=== PATIENT | male | born 1930 | race Caucasian/White ===

== ENCOUNTER 2016-08-07 23:32 | Inpatient (IN) | payer OTHER ==
--- NOTE | ~2016-08-07 | DS ---
Discharge Summary [facility] [address] [place]. [address] NAME: NEVA CONTRERAS : 29 STATUS : ADM IN [facility]#: [id number] AGE: 86 ADM/REG DATE : 08/08/16 MR#: [id number] REPORT SERV DATE: 08/11/16 DICTATED BY: NEVA AGUILAR MYKE DATE: 08/10/16 REPORT STATUS : Draft TRANSCRIBED BY: MODL DATE: 08/10/16 ADMISSION DATE: 08/08/2016 DISCHARGE DATE: The patient is an 86-year-old male with a history of diabetes, hypertension, and COPD, who presented to the emergency room with a complaint of weight loss and elevated blood sugar. For further details, please refer to H and P dictated by Dr. Moe Mhaan on 08/08/2016. HOSPITAL COURSE: Upon presentation to the hospital, the patient was diagnosed with hyperosmolar hyperglycemic nonketotic state. The patient was subsequently placed on insulin drip and admitted on the Hospitalist Service for further management. The patient's blood sugar was subsequently controlled. He was transitioned to subcutaneous insulin with adequate control of his blood sugar, however, overnight, episodes of hypoglycemia was noted. Also during his hospital course, the patient converted from sinus rhythm to atrial fibrillation. His CHADS2 score was 4 indicating anticoagulation; however, the patient remained rhythm controlled. The patient was started on Lovenox; however, the patient will be transitioned to Eliquis upon discharge. His HAS-BLED score is 2 suggesting that the risk of developing a stroke is greater than the risk of bleeding. Given this, the patient will be placed on long-term anticoagulation. The plan has been discussed with the patient, who voices understanding. For his diabetes, his A1c was checked and was 13.4; however, etiology of his elevated blood sugar is secondary to medication nonadherence as the patient was placed on metformin by primary care physician without compliance. Given that placing the patient on insulin precipitated several episodes of hypoglycemia, we will hold off on discharging the patient on insulin regimen. We will continue the patient on metformin recommended by his primary care physician and stress the importance of medication adherence. For his hypertension, blood pressure was uncontrolled. Hydrochlorothiazide was added to lisinopril with subsequent control of his blood pressure. The patient has remained hemodynamically stable. Given the completion of management, the patient will be discharged home today. Plan has been discussed with the patient, who voices understanding and is agreeable with this plan. DISCHARGE EXAM: VITAL SIGNS: Blood pressure 117/57 with a pulse of 69, respirations 20, O2 saturation 94% on 2 L nasal cannula. GENERAL: The patient is lying in bed, in no acute distress, appears stated age. HEENT: Normocephalic and atraumatic. Extraocular motors intact. Moist oral mucosa. NECK: Trachea midline and symmetric. No JVD noted. No thyromegaly present. CHEST: Nontender to palpation. CARDIOVASCULAR: Irregularly irregular rate and rhythm. No murmurs noted. LUNGS: Clear to auscultation bilaterally. No added breath sounds. ABDOMEN: Positive bowel sounds. Nontender. Nondistended. EXTREMITIES: No cyanosis, no clubbing, no edema. NEUROLOGIC: Alert and oriented x3. No focal deficits appreciated. DISCHARGE MEDICATIONS: The patient's home medications were continued including atorvastatin 10 mg p.o. daily, doxazosin 4 mg p.o. at bedtime, Lisinopril 10 mg p.o. daily, prednisone 10 mg p.o. daily, metformin 500 mg p.o. daily, Eliquis 5 mg p.o. twice a day, Discharge Summary [address] [address] NAME: NEVA CONTRERAS : 28 STATUS : ADM IN [facility]#: [id number] AGE: 86 ADM/REG DATE : 08/08/16 MR#: [id number] REPORT SERV DATE: 08/11/16 DICTATED BY: NEVA AGUILAR DATE: 08/10/16 REPORT STATUS : Draft TRANSCRIBED BY: DANIEL DATE: 08/10/16 hydrochlorothiazide 25 mg p.o. daily. DISCHARGE DIAGNOSES: 1. Diabetes type 2, uncontrolled. 2. Hypertension. 3. Hypokalemia. 4. Chronic obstructive pulmonary disease. 5. Obstructive sleep apnea. 6. Paroxysmal atrial fibrillation. DISPOSITION: The patient will be discharged home to follow up with primary care physician in five to seven days. ACTIVITY: As tolerated. DIET: Diabetic diet. Greater than 30 minutes was spent coordinating discharge, dictation of note, medication reconciliation, writing prescription. DICTATED BY: MD JULIA Rizzo/DANIEL Neva Aguilar MD / [id number] CC: MD Storm Rizzo M.D.
--- NOTE | ~2016-08-07 | HP ---
History And Physical [facility] [address] [place]. [address] NAME: NEVA CONTRERAS : 28 STATUS : ADM IN [facility]#: [id number] AGE: 86 ADM/REG DATE : 08/08/16 MR#: [id number] REPORT SERV DATE: 08/08/16 DICTATED BY: LOLY DUCKWORTH DATE: 08/08/16 REPORT STATUS : Draft TRANSCRIBED BY: MODL DATE: 08/08/16 DATE OF ADMISSION: 08/08/2016 CHIEF COMPLAINT: An 86-year-old male presenting with weight loss, debilitation, and a measured blood sugar over 600. HISTORY OF PRESENTING ILLNESS: The patient's history was obtained through careful interview with the patient, , and stepdaughter, coupled with review of [facility] medical records. For about three weeks now, the patient has had quite severe debilitation, decreased energy. He has lost about 20 pounds over that period of time. For several weeks now, he has had increasing shortness of breath. He actually went for a CT scan of his chest on 07/29/2016 that showed usual interstitial pneumonia with bronchiectasis, pulmonary fibrosis. He has been on prednisone since 05/2016 to help his breathing and he admits that his chronic dyspnea on exertion has improved recently. The patient has had unsteady gait, been ambulating with a cane. He has had near falls. Occasional lightheadedness. He has had polyuria, polydipsia. He has had three falls in the last two and a half weeks. No chest pain. No abdominal pain. No back pain. No headache. He has had some arthritis discomfort in his shoulders and wrists, an aching quality, 3/10 severity without swelling of the joints though. REVIEW OF SYSTEMS: Otherwise, a 14-point review of systems was obtained and was negative. PAST MEDICAL HISTORY: 1. COPD. 2. Pulmonary fibrosis. 3. Obstructive sleep apnea, on CPAP. 4. Elevated cholesterol. 5. Hypertension. 6. Benign prostatic hypertrophy. 7. Diabetes. The patient quit using metformin a few months ago. A blood sugar checked on the night of admission was greater than 600. 8. Anemia. 9. Usual interstitial pneumonitis with bronchiectasis by CT scan, 07/29/2016. 10.Thoracic aortic aneurysm, 4.2 cm. 11.Dementia. PAST SURGICAL HISTORY: Basal cell carcinoma removed from the skin. SOCIAL HISTORY: The patient quit smoking more than 40 years ago. No alcohol abuse. Is History And Physical [address] [address] NAME: NEVA CONTRERAS : 28 STATUS : ADM IN PAT#: [id number] AGE: 86 ADM/REG DATE : 08/08/16 MR#: [id number] REPORT SERV DATE: 08/08/16 DICTATED BY: LOLY DUCKWORTH DATE: 08/08/16 REPORT STATUS : Draft TRANSCRIBED BY: DANIEL DATE: 08/08/16 . Lives in [place], [place]. Has three children. 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 ALLERGIES: NO KNOWN DRUG ALLERGIES. FAMILY HISTORY: Diabetes. CURRENT MEDICATIONS: Include Lipitor 20 mg p.o. daily, Tums, Cardura 4 mg p.o. q.h.s., Advil p.r.n., lisinopril 10 mg p.o. daily, metformin 500 mg p.o. b.i.d. has not taken his medication in months, prednisone 10 mg p.o. daily, and iron supplement. PHYSICAL EXAMINATION: VITAL SIGNS: Temperature 97.5, pulse 65, blood pressure 124/59, respiratory rate 19, O2 saturation 94% on room air. GENERAL: A chronically ill-appearing male, but in no evidence of acute distress. HEENT: Pupils equal, round, and reactive to light. No conjunctival pallor. No scleral icterus. Nares are patent. Oropharynx is clear of obstruction. Dry mucous membranes. The patient has oral thrush. NECK: Trachea midline. No thyromegaly. LYMPH: No cervical lymphadenopathy. No supraclavicular lymphadenopathy. RESPIRATORY: Clear to auscultation at bases with some crackles at the base of lungs, but no rales, no wheezes. The patient has a nonlabored respiratory effort. CARDIOVASCULAR: Regular rate and rhythm. No murmurs, rubs, or gallops. No extremity edema is appreciated. ABDOMEN: Soft, nontender, nondistended. Normal bowel sounds auscultated throughout. No hepatosplenomegaly. DERMATOLOGICAL: Warm and dry extremities. No pallor, no cyanosis. PSYCHIATRIC: Flat affect. Irritable mood. Alert and oriented x3. LABORATORY DATA: White blood cell count 11.7, hemoglobin 13, hematocrit 38, platelets 301. Sodium 134, potassium 3.9, chloride 99, bicarb 28, BUN 17, creatinine 1.33, glucose 556. Urinalysis, negative for infection. Lipase 321. ASSESSMENT AND PLAN: 1. Hyperosmolar nonketotic hyperglycemia. Place on insulin drip IV. IV fluids. Check hemoglobin A1c. 2. Usual interstitial pneumonia with fibrosis. 3. Bronchiectasis. 4. Obstructive sleep apnea, on CPAP. 5. Chronic obstructive pulmonary disease. 6. Thrush. Start nystatin swish and swallow. KPL/MODL Loly Dominguez History And Physical [address] [address] NAME: NEVA CONTRERAS : 28 STATUS : ADM IN [facility]#: [id number] AGE: 86 ADM/REG DATE : 08/08/16 MR#: [id number] REPORT SERV DATE: 08/08/16 DICTATED BY: LOLY DUCKWORTH DATE: 08/08/16 REPORT STATUS : Draft TRANSCRIBED BY: DANIEL DATE: 08/08/16 Henrique Duckworth / [id number] CC: MD Storm Rizzo M.D.
--- NOTE | ~2016-08-07 | DS ---
Discharge Summary [facility] [address] [place]. [address] NAME: NEVA CONTRERAS : 28 STATUS : DIS IN PAT#: [id number] AGE: 86 ADM/REG DATE : 08/08/16 MR#: [id number] REPORT SERV DATE: 08/12/16 DICTATED BY: KENNEDY ACKERMAN DATE: 08/11/16 REPORT STATUS : Draft TRANSCRIBED BY: MODL DATE: 08/11/16 ADMISSION DATE: 08/08/2016 DISCHARGE DATE: 08/11/2016 ADDENDUM: Addendum to Dr. Gutierrez's discharge summary done just yesterday. In summary, this is a pleasant 86-year-old male. He has a known history of insulin-dependent diabetes, very uncontrolled A1c, near 13.7; hypertension; COPD, came in with weight loss; hyperglycemia; determined to have hyperosmolar hyperglycemic nonketotic state, placed on IV insulin drip, became more euglycemic, transitioned subcutaneously. Overnight episodes of hypoglycemia likely due to better compliance with his insulin regimen and dietary control. He did have apparent AFib that was converted to sinus rhythm. CHADS2 of 4 requiring anticoagulation, transitioned from Lovenox to Eliquis. The patient understands needs to be compliant from a dietary perspective and medication compliance with subcutaneous insulin. 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 Creatinine is permissive. He wants to go home. I will provide a rolling walker if the patient would like, we will discharge home. Follow up with PCP in two weeks. Follow up with outpatient diabetic education. Follow up with Endocrinology as an outpatient in four weeks for [facility]. Follow up with Cardiology in four weeks as well. For which the patient rather than being on hydrochlorothiazide for which was discharged in the past, should be placed on likely rate controlling medication in addition to his ULICES inhibitor. DISCHARGE MEDICATIONS: Eliquis 5 p.o. b.i.d., Lipitor 20 p.o. daily, Cardura 4 p.o. q.h.s., iron sulfate 300 p.o. daily, hydrochlorothiazide 25 p.o. daily. We would recommend to supplant that with low-dose metoprolol; NovoLog 5 units subcutaneously t.i.d. before meals; NovoLog sliding scale level 1; lisinopril 10 p.o. daily; nystatin swish and swallow q.6h. seven more days; metformin 500 p.o. b.i.d.; prednisone 10 p.o. daily, takes this for "arthritis" we will be concerned about possible rheumatologic disease, defer to his PCP; DuoNeb p.r.n.; Levemir 10 subcutaneously q.a.m. and 6 subcutaneously q.h.s. and educated on nighttime small snack before bedtime. Consults apparently were none. See rest of details from Dr. Gutierrez's discharge summary. It took over 30 minutes to do. DICTATED BY: Kennedy Ackerman DO WST/DANIEL Discharge Summary [address] [address] NAME: NEVA CONTRERAS : 28 STATUS : DIS IN PAT#: [id number] AGE: 86 ADM/REG DATE : 08/08/16 MR#: [id number] REPORT SERV DATE: 08/12/16 DICTATED BY: KENNEDY ACKERMAN DATE: 08/11/16 REPORT STATUS : Draft TRANSCRIBED BY: MODL DATE: 08/11/16 Kennedy Ackerman DO / [id number] CC: DO Storm Ruelas M.D.
[2016-08-07 19:45] LABS: BASOPHILS 0.2 %; BASOPHILS ABSOLUTE 0.02 10/3/uL (0.0-0.16); EOSINOPHILS 0.8 %; EOSINOPHILS ABSOLUTE 0.09 10/3/uL (0.0-0.53); ER CBC TAT 0 Hrs 15 Mins; HEMATOCRIT 37.6 % (40.0-51.0); HEMOGLOBIN 12.8 g/dL (13.6-17.8); IMMATURE GRANULOCYTES 0.3 %; IMMATURE GRANULOCYTES ABSOLUTE 0.04 10/3/uL (0.0-0.11); LYMPHOCYTES 14.7 %; LYMPHOCYTES ABSOLUTE 1.72 10/3/uL (0.67-4.30); MEAN CORPUSCULAR HEMOGLOB 31.2 pg (26.0-34.0); MEAN CORPUSCULAR VOLUME 91.7 fL (80-100); MEAN PLATELET VOLUME 9.2 fL (9.2-13.0); MONOCYTES 4.8 %; MONOCYTES ABSOLUTE 0.56 10/3/uL (0.21-1.20); NEUTROPHILS 79.2 %; NEUTROPHILS ABSOLUTE 9.25 10/3/uL (2.02-8.40); PLATELET COUNT 301 10/3/uL (150-400); RBC DISTRIBUTION WIDTH 12.9 % (12.0-16.0); WHITE BLOOD CELLS 11.7 10/3/uL (4.5-10.5)
[2016-08-07 19:46] LABS: MANUAL DIFF NO %
[2016-08-07 19:49] LABS: ASCORBIC ACID (UR NOT ORDER) NEG (NEG); BILIRUBIN, URINE NEGATIVE (NEG); ER URINALYSIS TAT 0 Hrs 11 Mins; KETONE, URINE TRACE MG/DL (NEG); LEUKOCYTE ESTERASE(NOT OR NEG (NEG); NITRITE (URINE) NEG (NEG); WBC (NOT ORDERED) (RFLEX) 1 (0-5)
[2016-08-07 20:02] LABS: A/G RATIO 0.8 (0.7-1.9); ALBUMIN 3.1 G/DL (3.5-5.0); CALCIUM, SERUM 8.8 MG/DL (8.5-10.4); CHLORIDE, SERUM 99 MMOL/L (96-112); CREATININE 1.33 MG/DL (0.70-1.30); GFR AFRICAN AMERICAN 55 ML/MIN (>=60); GFR NON AFRICAN AMERICAN 48 ML/MIN (>=60); GLOBULIN 3.9 G/DL (2.5-4.1); SGOT(AST) 18 U/L (5-40); SGPT(ALT) 26 U/L (5-65)
[2016-08-07 20:03] LABS: ALKALINE PHOSPHATASE 83 U/L (45-117); BUN (BLOOD UREA NITROGEN) 17 MG/DL (6-23); CO2 (CARBON DIOXIDE) 28 MMOL/L (24-34); GLUCOSE, SERUM 556 MG/DL (60-99); POTASSIUM, SERUM 3.9 MMOL/L (3.5-5.3); SODIUM, SERUM 134 MMOL/L (135-148); TOTAL BILIRUBIN 0.9 MG/DL (0-1.2)
[~2016-08-07 23:32] MED LIST: ACET500CAP PO; ALEVE220 MG PO; CARDU4 PO; GLUCCHONDR PO; IRON PO; LOPID6 PO; PRILO PO; PRIN10 PO; TUMSROLL PO
[2016-08-08] MEDS ORDERED: PRIN10 PO (00:06)
[2016-08-08] MEDS ORDERED: P10 PO (00:06)
[2016-08-08] MEDS ORDERED: CARDU4 PO (00:07)
[2016-08-08] MEDS ORDERED: LIPITOR20 PO (00:07)
[2016-08-08] MEDS ORDERED: GLUMETZA500 MG PO (00:09)
[2016-08-08] MEDS ORDERED: ADVIL PO (00:10)
[2016-08-08] MEDS ORDERED: TUMSROLL PO (00:10)
[2016-08-08] MEDS ORDERED: IRON OTC PO (00:10)
[2016-08-08 07:46] LABS: BASOPHILS 0.2 %; BASOPHILS ABSOLUTE 0.02 10/3/uL (0.0-0.16); EOSINOPHILS 1.6 %; EOSINOPHILS ABSOLUTE 0.16 10/3/uL (0.0-0.53); HEMOGLOBIN 10.6 g/dL (13.6-17.8); IMMATURE GRANULOCYTES 0.3 %; IMMATURE GRANULOCYTES ABSOLUTE 0.03 10/3/uL (0.0-0.11); LYMPHOCYTES 19.1 %; LYMPHOCYTES ABSOLUTE 1.89 10/3/uL (0.67-4.30); MEAN CORPUS HGB CONC 34.2 g/dL (32.0-36.0); MEAN CORPUSCULAR HEMOGLOB 30.6 pg (26.0-34.0); MEAN CORPUSCULAR VOLUME 89.6 fL (80-100); MEAN PLATELET VOLUME 9.4 fL (9.2-13.0); MONOCYTES 6.7 %; MONOCYTES ABSOLUTE 0.66 10/3/uL (0.21-1.20); NEUTROPHILS 72.1 %; NEUTROPHILS ABSOLUTE 7.11 10/3/uL (2.02-8.40); PLATELET COUNT 272 10/3/uL (150-400); RBC DISTRIBUTION WIDTH 12.9 % (12.0-16.0); RED CELL COUNT 3.46 10/6/uL (4.7-6.1); WHITE BLOOD CELLS 9.9 10/3/uL (4.5-10.5)
[2016-08-08 07:49] LABS: MANUAL DIFF NO %
[2016-08-08 07:58] LABS: BUN (BLOOD UREA NITROGEN) 17 MG/DL (6-23); CALCIUM, SERUM 8.2 MG/DL (8.5-10.4); CHLORIDE, SERUM 106 MMOL/L (96-112); CO2 (CARBON DIOXIDE) 29 MMOL/L (24-34); CREATININE 0.91 MG/DL (0.70-1.30); GFR AFRICAN AMERICAN 88 ML/MIN (>=60); GFR NON AFRICAN AMERICAN 76 ML/MIN (>=60); PHOSPHORUS, SERUM 2.2 MG/DL (2.5-4.5); POTASSIUM, SERUM 3.2 MMOL/L (3.5-5.3)
[2016-08-08 07:59] LABS: GLUCOSE, SERUM 101 MG/DL (60-99); INTERNATIONAL NORMAL RATI 1.3 UNITS (-); PARTIAL THROMBO TIME 32.4 SEC (22.5-37.2); PROTIME (NOT ORD) 15.6 SEC (12.0-14.5); SODIUM, SERUM 142 MMOL/L (135-148)
[2016-08-08 08:03] LABS: B NATRIURETIC PEPTIDE (BNP) 264.5 PG/ML (< 100.0)
[2016-08-08 08:11] LABS: BUN (BLOOD UREA NITROGEN) 17 MG/DL (6-23); CALCIUM, SERUM 8.5 MG/DL (8.5-10.4); CHLORIDE, SERUM 105 MMOL/L (96-112); CO2 (CARBON DIOXIDE) 29 MMOL/L (24-34); CPK 47 U/L (0-200); CREATININE 0.98 MG/DL (0.70-1.30); GFR AFRICAN AMERICAN 80 ML/MIN (>=60); GFR NON AFRICAN AMERICAN 69 ML/MIN (>=60); POTASSIUM, SERUM 3.2 MMOL/L (3.5-5.3); SGOT(AST) 18 U/L (5-40); SGPT(ALT) 22 U/L (5-65); SODIUM, SERUM 139 MMOL/L (135-148); TROPONIN I 0.04 NG/ML (<0.05)
[2016-08-08 08:13] LABS: A/G RATIO 0.8 (0.7-1.9); ALBUMIN 2.4 G/DL (3.5-5.0); ALKALINE PHOSPHATASE 61 U/L (45-117); GLOBULIN 2.9 G/DL (2.5-4.1); GLUCOSE, SERUM 98 MG/DL (60-99); TOTAL BILIRUBIN 0.3 MG/DL (0-1.2); TOTAL PROTEIN 5.3 G/DL (6.0-8.5)
[2016-08-08 12:35] LABS: GLYCOHEMOGLOBIN (HbA1c) 13.4 % (4.7-6.1)
[2016-08-08 13:01] LABS: PROCALCITONIN 0.07 ng/mL (<0.5)
[2016-08-08 15:11] LABS: BUN (BLOOD UREA NITROGEN) 20 MG/DL (6-23); CHLORIDE, SERUM 101 MMOL/L (96-112); CO2 (CARBON DIOXIDE) 27 MMOL/L (24-34); CREATININE 1.01 MG/DL (0.70-1.30); GFR AFRICAN AMERICAN 77 ML/MIN (>=60); GFR NON AFRICAN AMERICAN 67 ML/MIN (>=60); PHOSPHORUS, SERUM 2.5 MG/DL (2.5-4.5)
[2016-08-08 15:12] LABS: GLUCOSE, SERUM 295 MG/DL (60-99); POTASSIUM, SERUM 3.9 MMOL/L (3.5-5.3); SODIUM, SERUM 134 MMOL/L (135-148)
[2016-08-09 06:09] LABS: BASOPHILS 0.1 %; BASOPHILS ABSOLUTE 0.01 10/3/uL (0.0-0.16); EOSINOPHILS 1.1 %; EOSINOPHILS ABSOLUTE 0.09 10/3/uL (0.0-0.53); HEMATOCRIT 30.9 % (40.0-51.0); HEMOGLOBIN 10.4 g/dL (13.6-17.8); IMMATURE GRANULOCYTES 0.4 %; IMMATURE GRANULOCYTES ABSOLUTE 0.03 10/3/uL (0.0-0.11); LYMPHOCYTES 20.1 %; LYMPHOCYTES ABSOLUTE 1.69 10/3/uL (0.67-4.30); MEAN CORPUS HGB CONC 33.7 g/dL (32.0-36.0); MEAN CORPUSCULAR HEMOGLOB 30.6 pg (26.0-34.0); MEAN CORPUSCULAR VOLUME 90.9 fL (80-100); MONOCYTES 7.1 %; NEUTROPHILS 71.2 %; PLATELET COUNT 270 10/3/uL (150-400); RBC DISTRIBUTION WIDTH 13.4 % (12.0-16.0); WHITE BLOOD CELLS 8.4 10/3/uL (4.5-10.5)
[2016-08-09 06:10] LABS: MANUAL DIFF NO %
[2016-08-09 06:22] LABS: A/G RATIO 0.7 (0.7-1.9); ALBUMIN 2.2 G/DL (3.5-5.0); ALKALINE PHOSPHATASE 55 U/L (45-117); CALCIUM, SERUM 8.3 MG/DL (8.5-10.4); CHLORIDE, SERUM 109 MMOL/L (96-112); CO2 (CARBON DIOXIDE) 30 MMOL/L (24-34); CREATININE 0.95 MG/DL (0.70-1.30); GFR AFRICAN AMERICAN 83 ML/MIN (>=60); GFR NON AFRICAN AMERICAN 72 ML/MIN (>=60); GLOBULIN 3.1 G/DL (2.5-4.1); PHOSPHORUS, SERUM 3.1 MG/DL (2.5-4.5); POTASSIUM, SERUM 3.3 MMOL/L (3.5-5.3); SGOT(AST) 16 U/L (5-40); SGPT(ALT) 19 U/L (5-65); TOTAL BILIRUBIN 0.3 MG/DL (0-1.2); TOTAL PROTEIN 5.3 G/DL (6.0-8.5)
[2016-08-09 06:23] LABS: BUN (BLOOD UREA NITROGEN) 14 MG/DL (6-23); GLUCOSE, SERUM 87 MG/DL (60-99); SODIUM, SERUM 142 MMOL/L (135-148)
[2016-08-10 06:06] LABS: BASOPHILS 0.2 %; BASOPHILS ABSOLUTE 0.02 10/3/uL (0.0-0.16); EOSINOPHILS ABSOLUTE 0.09 10/3/uL (0.0-0.53); HEMATOCRIT 32.6 % (40.0-51.0); IMMATURE GRANULOCYTES 0.5 %; IMMATURE GRANULOCYTES ABSOLUTE 0.04 10/3/uL (0.0-0.11); LYMPHOCYTES 25.5 %; MEAN CORPUS HGB CONC 33.7 g/dL (32.0-36.0); MEAN CORPUSCULAR HEMOGLOB 30.6 pg (26.0-34.0); MEAN CORPUSCULAR VOLUME 90.8 fL (80-100); MEAN PLATELET VOLUME 9.1 fL (9.2-13.0); MONOCYTES 6.1 %; MONOCYTES ABSOLUTE 0.53 10/3/uL (0.21-1.20); NEUTROPHILS 66.7 %; NEUTROPHILS ABSOLUTE 5.74 10/3/uL (2.02-8.40); PLATELET COUNT 255 10/3/uL (150-400); RBC DISTRIBUTION WIDTH 13.3 % (12.0-16.0); RED CELL COUNT 3.59 10/6/uL (4.7-6.1); WHITE BLOOD CELLS 8.6 10/3/uL (4.5-10.5)
[2016-08-10 06:09] LABS: MANUAL DIFF NO %
[2016-08-10 06:21] LABS: A/G RATIO 0.7 (0.7-1.9); ALBUMIN 2.3 G/DL (3.5-5.0); ALKALINE PHOSPHATASE 58 U/L (45-117); BUN (BLOOD UREA NITROGEN) 17 MG/DL (6-23); CALCIUM, SERUM 8.6 MG/DL (8.5-10.4); CHLORIDE, SERUM 107 MMOL/L (96-112); CO2 (CARBON DIOXIDE) 29 MMOL/L (24-34); CREATININE 0.99 MG/DL (0.70-1.30); GFR AFRICAN AMERICAN 79 ML/MIN (>=60); GFR NON AFRICAN AMERICAN 68 ML/MIN (>=60); GLOBULIN 3.2 G/DL (2.5-4.1); POTASSIUM, SERUM 3.6 MMOL/L (3.5-5.3); SGOT(AST) 21 U/L (5-40); SGPT(ALT) 23 U/L (5-65); SODIUM, SERUM 142 MMOL/L (135-148); TOTAL BILIRUBIN 0.3 MG/DL (0-1.2); TOTAL PROTEIN 5.5 G/DL (6.0-8.5)
[2016-08-10 06:22] LABS: GLUCOSE, SERUM 59 MG/DL (60-99)
[2016-08-11] MEDS ORDERED: FESO4 PO (10:10)
[2016-08-11] MEDS ORDERED: ELIQUIS 5 MG TAB5 MG PO (10:10)
[2016-08-11] MEDS ORDERED: HCTZ25B PO (10:11)
[2016-08-11] MEDS ORDERED: NOVOLOG SC ×2 (10:14)
[2016-08-11] MEDS ORDERED: NYS500UDL PO (10:15)
[2016-08-11] MEDS ORDERED: DUONEB INH (10:16)
[2016-08-11] MEDS ORDERED: LEVEMIR SC ×2 (10:17)
== END 2016-08-11 13:43 | disposition home health service (06) | DRG 638 ==
LOC: ER 23:32 → 5SO 08-08 00:16
PROVIDERS: Emergency Medicine; Hospitalist
DX: E13.10 Other specified diabetes mellitus with ketoacidosis without coma (principal); B37.0 Candidal stomatitis; F03.90 Unspecified dementia, unspecified severity, without behavioral disturbance, psychotic disturbance, mood disturbance, and anxiety; J84.10 Pulmonary fibrosis, unspecified; I10 Essential (primary) hypertension; J47.9 Bronchiectasis, uncomplicated; G47.33 Obstructive sleep apnea (adult) (pediatric); E78.5 Hyperlipidemia, unspecified; N40.0 Benign prostatic hyperplasia without lower urinary tract symptoms; Z79.84 Long term (current) use of oral hypoglycemic drugs; Z87.891 Personal history of nicotine dependence; Z83.3 Family history of diabetes mellitus; Z79.899 Other long term (current) drug therapy; Z79.52 Long term (current) use of systemic steroids; E87.6 Hypokalemia; I48.0 Paroxysmal atrial fibrillation
CPT/HCPCS: 71010; 80048; 80053; 81001; 82550; 82553; 82962; 83036; 83690; 83735; 83880; 84100; 84145; 84443; 84484; 85025; 85610; 85730; 93005; 94640; 96374; 97161-GP; 99285; A9270-GY